=== PATIENT | female | born 1990 | race Caucasian/White ===

== ENCOUNTER → 2016-08-07 | Outpatient (REF) | payer OTHER ==
[~2016-08-07] MED LIST: DOCU-34 PO; FERR325T36 PO; IBUP-15 PO; PREN1TAB79 PO
[2016-08-07 11:02] LABS: MEAN CORPUSCULAR HEMOGLOBIN 28.8 PG (26.0-34.0); MEAN CORPUSCULAR HGB CONC 32.5 g/dL (31.0-37.0); MEAN PLATELET VOLUME 10.9 FL (6.0-9.5); WHITE BLOOD COUNT 5.46 10^3uL (4.0-11.0)
[2016-08-07 23:12] LABS: HEPATITIS B SURFACE ANTIGEN C Negative
[2016-08-08 12:37] LABS: RUBELLA AB IGG 2.27 OD Ratio (>1.09)
== END ==
LOC: LAB 10:04
PROVIDERS: ATTEND Family Medicine
DX: Z36 Encounter for antenatal screening of mother (principal)
CPT/HCPCS: 85027; 86592; 86762; 86780; 86850; 86900; 86901; 87340